=== PATIENT | female | born 1940 | race African-American/Black ===

== ENCOUNTER 2018-08-20 20:04 | Emergency (ER) | payer OTHER ==
--- NOTE | 2018-08-20 20:40 | PDOC ---
History of Present Illness - General Chief Complaint: Pain Stated Complaint: RT FOOT PAIN Time Seen by Provider: 08/20/18 20:28 History Source: Patient Exam Limitations: No Limitations - History of Present Illness Initial Comments: 08/20/18 20:35 78 yr female history of DM, HTN chronic back pain with 5 days pain to right great toe and across her foot no trauma . pt has history of elevated uric acid in the past. no fever no chills no vomiting. Past History - Past Medical History Allergies/Adverse Reactions: Allergies Allergy/AdvReac Type Severity Reaction Status Date / Time No Known Allergies Allergy Verified 11/30/14 20:33 Home Medications: Ambulatory Orders Hydrochlorothiazide [Hctz -] 25 mg PO DAILY 11/30/14 Levothyroxine [Synthroid -] 50 mcg PO DAILY 11/30/14 Metoprolol Succinate [Toprol Xl] 50 mg PO DAILY 11/30/14 Nifedipine ER [Procardia XL -] 60 mg PO DAILY 11/30/14 Duloxetine HCl 60 mg PO DAILY 08/20/18 Indomethacin [Indocin -] 50 mg PO BID #14 capsule 08/20/18 Ranitidine [Zantac -] 300 mg PO DAILY 08/20/18 COPD: No Diabetes: Yes GI Disorders: Yes (GERD REFLUX) HTN: Yes Thyroid Disease: Yes (HYPO) - Immunization History Immunization Up to Date: Yes - Suicide/Smoking/Psychosocial Hx Smoking Status: No Smoking History: Former smoker Have you smoked in the past 12 months: No Number of Cigarettes Smoked Daily: 0 If you are a former smoker, when did you quit?: many years ago Information on smoking cessation initiated: No Hx Alcohol Use: Yes (occasion) Substance Use Type: None Review of Systems - Review of Systems Able to Perform ROS?: Yes Is the patient limited Prydeinig proficient: No Musculoskeletal: Yes: Symptoms Reported *Physical Exam - Vital Signs Last Vital Signs Temp Pulse Resp BP Pulse Ox 99 F 85 18 134/69 95 08/20/18 20:13 08/20/18 20:13 08/20/18 20:13 08/20/18 20:13 08/20/18 20:13 - Physical Exam General Appearance: Yes: Nourished, Appropriately Dressed HEENT: positive: EOMI, JUSTIN Extremity: positive: Erythema (right bunnion, right great toe with erythema, skin intact TTP across top of foot ) Integumentary: positive: Normal Color, Dry, Warm ED Treatment Course - LABORATORY CBC & Chemistry Diagram: 08/20/18 20:36 08/20/18 20:36 - RADIOLOGY Radiology Studies Ordered: Category Date Time Status FOOT-RIGHT [RAD] Stat Radiology 08/20/18 20:34 Ordered Medical Decision Making - Medical Decision Making 08/20/18 20:39 cc: foot pain, toe pain 5 days getting worse *DC/Admit/Observation/Transfer Diagnosis at time of Disposition: Gout attack Qualifiers: Gout site: foot Gout etiology: unspecified cause Laterality: right Qualified Code(s): M10.9 - Gout, unspecified - Discharge Dispostion Disposition: HOME Condition at time of disposition: Fair - Prescriptions Prescriptions: Indomethacin [Indocin -] 50 mg PO BID #14 capsule - Referrals Referrals: Vasiliy Santana [Primary Care Provider] - - Patient Instructions Printed Discharge Instructions: DI for Gout Additional Instructions: indocin every 12hrs for pain as needed warm compresses to the area of pain call your doctor tomorrow to make appointment for follow up avoid any red meat shellfish, chocolate, alcohol as theses foods make gout worse - Post Discharge Activity
[2018-08-20 20:48] LABS: BASO % 1.2 % (0-2.0); EOS % 0.9 % (0-4.5); HEMOGLOBIN 11.1 GM/dL (10.7-15.3); LYMPH % 18.3 % (8-40); MCH 30.5 pg (25.7-33.7); MCHC 34.7 g/dl (32.0-36.0); MEAN CELL VOLUME 87.9 fl (80-96); MEAN PLT VOLUME 8.7 fl (7.5-11.1); MONO % 7.6 % (3.8-10.2); PLATELET COUNT 245 K/MM3 (134-434); RBC 3.63 M/mm3 (3.60-5.2); RDW 14.6 % (11.6-15.6); WHITE BLOOD COUNT 8.6 K/mm3 (4.0-10.0)
[2018-08-20 20:52] VITALS: BP 134/69; PULSE 85; TEMP 99; BMI 28.8
[2018-08-20 21:16] LABS: ALBUMIN 3.2 g/dl (3.4-5.0); ALK PHOS 66 U/L (45-117); ANION GAP 8 MMOL/L (8-16); BILIRUBIN,TOTAL 0.3 mg/dL (0.2-1); BLOOD UREA NITROGEN 23 mg/dL (7-18); CALCIUM 8.7 mg/dL (8.5-10.1); CHLORIDE 102 mmol/L (98-107); CO2 29 mmol/L (21-32); CREATININE 1.7 mg/dL (0.55-1.3); GLUCOSE,RANDOM 139 mg/dL (74-106); POTASSIUM 3.7 mmol/L (3.5-5.1); SGOT/AST 10 U/L (15-37); SGPT/ALT 18 U/L (13-61); SODIUM 139 mmol/L (136-145); URIC ACID 8.6 mg/dL (2.6-7.2)
[2018-08-20] MEDS ORDERED: COLCHICINE 0.6 MG TABLET (FP) PO ONE (21:23)
[2018-08-20] MEDS ORDERED: COLCHICINE 0.6 MG TABLET (FP) ONE (21:27)
[2018-08-20] MEDS ORDERED: INDOMETHACIN 50 MG CAPSULE PO ONE (21:32)
== END 2018-08-20 22:05 | disposition home or self-care (01) ==
LOC: JER 20:04 → JERFT 20:04
DX: M10.9 Gout, unspecified (principal); I10 Essential (primary) hypertension; E11.9 Type 2 diabetes mellitus without complications; E03.9 Hypothyroidism, unspecified
CPT/HCPCS: 36415; 73630-TC-RT-FY; 80053; 84550; 85025; 99281-25

== ENCOUNTER 2021-03-19 22:57 | Observation (INO) | payer OTHER ==
[2021-03-19 23:22] VITALS: BMI 28.2
[2021-03-19] MEDS ORDERED: SODIUM CHLORIDE 1,000 ML IV STA (23:56)
[2021-03-20 00:56] LABS: BASO % 0.8 % (0-2.0); EOS % 2.5 % (0-4.5); HEMOGLOBIN 10.4 GM/dL (10.7-15.3); MCH 30.3 pg (25.7-33.7); MCHC 34.5 g/dl (32.0-36.0); MEAN CELL VOLUME 87.9 fl (80-96); MEAN PLT VOLUME 8.4 fl (7.5-11.1); MONO % 5.4 % (3.8-10.2); NEUT % 72.3 % (42.8-82.8); PLATELET COUNT 267 10^3/uL (134-434); RBC 3.42 M/mm3 (3.60-5.2); RDW 16.6 % (11.6-15.6); WHITE BLOOD COUNT 6.6 K/mm3 (4.0-10.0)
[2021-03-20 01:20] LABS: CHLORIDE 107 mmol/L (98-107); SODIUM 142 mmol/L (136-145)
[2021-03-20 01:22] LABS: CALCIUM 8.9 mg/dL (8.5-10.1)
[2021-03-20 01:23] LABS: ALBUMIN 3.4 g/dl (3.4-5.0); ANION GAP 9 MMOL/L (8-16); BLOOD UREA NITROGEN 23.6 mg/dL (7-18); CO2 26 mmol/L (21-32); GLUCOSE,RANDOM 170 mg/dL (74-106); MAGNESIUM 1.9 mg/dL (1.8-2.4)
[2021-03-20 01:27] LABS: BILIRUBIN,TOTAL 0.3 mg/dL (0.2-1); CREATININE 1.1 mg/dL (0.55-1.3); SGOT/AST 21 U/L (15-37)
[2021-03-20 01:29] LABS: ALK PHOS 56 U/L (45-117)
[2021-03-20 01:58] LABS: SGPT/ALT 33 U/L (13-61); TOT PROT 8.2 g/dl (6.4-8.2)
[2021-03-20 06:22] VITALS: TEMP 98.2
[2021-03-20 07:33] LABS: HEMATOCRIT 27.6 % (32.4-45.2); HEMOGLOBIN 9.1 GM/dL (10.7-15.3); MCHC 33.1 g/dl (32.0-36.0); MEAN CELL VOLUME 87.8 fl (80-96); MEAN PLT VOLUME 8.3 fl (7.5-11.1); PLATELET COUNT 248 10^3/uL (134-434); RBC 3.15 M/mm3 (3.60-5.2); RDW 16.7 % (11.6-15.6); WHITE BLOOD COUNT 5.8 K/mm3 (4.0-10.0)
[2021-03-20 08:01] LABS: ALBUMIN 3.4 g/dl (3.4-5.0); BLOOD UREA NITROGEN 22.2 mg/dL (7-18); MAGNESIUM 2.1 mg/dL (1.8-2.4)
[2021-03-20] MEDS: INSULIN SLIDING SCALE (NOVOLOG) 1 VIAL SQ SCH ×2 (08:01→11:55)
[2021-03-20 08:02] LABS: CALCIUM 9.3 mg/dL (8.5-10.1)
[2021-03-20 08:04] LABS: CREATININE 0.8 mg/dL (0.55-1.3); PHOSPHOROUS 4.3 mg/dL (2.5-4.9)
[2021-03-20 08:05] LABS: TOT PROT 7.8 g/dl (6.4-8.2)
[2021-03-20 08:06] LABS: BILIRUBIN,TOTAL 0.2 mg/dL (0.2-1)
[2021-03-20 09:07] LABS: EPI CELLS 3 /uL (0-25.1); HYALINE CASTS 0 /uL (0-3.1); PH,URINE 6.5 (5.0-8.0); URINE APPEARANCE CLEAR; URINE BACTERIA 32 /uL (0-1359); URINE BILIRUBIN NEGATIVE (NEGATIVE); URINE COLOR YELLOW; URINE GLUCOSE (UA) NEGATIVE (NEGATIVE); URINE KETONE NEGATIVE (NEGATIVE); URINE LEUK ESTERASE NEGATIVE (NEGATIVE); URINE NITRITE NEGATIVE (NEGATIVE); URINE PROTEIN NEGATIVE (NEGATIVE); URINE RBC 29 /uL (0-23.9); URINE UROBILINOGEN 0.2 mg/dL (0.2-1.0); URINE WBC 5 /uL (0-25.8)
[2021-03-20] MEDS ORDERED: ENOXAPARIN NA (PORCINE) 40 MG/0.4 ML DISP.SYRIN SQ SCH (10:00)
[2021-03-20] MEDS ORDERED: PANTOPRAZOLE SODIUM PO SCH (12:00)
[2021-03-20] MEDS ORDERED: LEVOTHYROXINE NA 50 MCG TABLET (FP) PO SCH ×2 (12:00→12:48)
[2021-03-20] MEDS ORDERED: METFORMIN PO SCH (12:00)
[2021-03-20] MEDS ORDERED: FOLIC ACID PO SCH (12:00)
[2021-03-20] MEDS ORDERED: NIFEdipine E.R 60 MG TABLET PO SCH (12:00)
[2021-03-20] MEDS ORDERED: HYDROCHLOROTHIAZIDE 25 MG TABLET (FP) PO SCH (12:00)
[2021-03-20] MEDS ORDERED: PANTOPRAZOLE 40 MG TABLET ONE (12:19)
[2021-03-20] MEDS ORDERED: LEVOTHYROXINE NA 25 MCG TABLET (FP) ONE (12:20)
[2021-03-20] MEDS ORDERED: metFORMIN HCL 500 MG TABLET (FP) ONE (12:20)
[2021-03-20] MEDS ORDERED: NIFEdipine E.R. 30 MG TABLET ONE ×2 (12:20→12:23)
[2021-03-20] MEDS ORDERED: FOLIC ACID 1 MG TABLET (FP) ONE (12:21)
[2021-03-20] MEDS ORDERED: PANTOPRAZOLE 40 MG TABLET PO SCH (12:49)
[2021-03-20] MEDS ORDERED: FOLIC ACID 1 MG TABLET (FP) PO SCH (12:50)
[2021-03-20 13:20] VITALS: BP 147/78; PULSE 76
[2021-03-20] MEDS ORDERED: ROSUVASTATIN CA 5 MG TABLET (FP) PO SCH (22:00)
== END 2021-03-20 13:51 | disposition home or self-care (01) ==
LOC: JER 22:57 → JERBED 03-20 02:21 → UNDOADMOB 03-20 02:21 → INTOOBSV 03-20 03:17 → OBSVTOIN 03-20 03:17 → JERBED 03-20 09:47
PROVIDERS: ADMIT Hospitalist; ATTEND Student in an Organized Health Care Education/Training Program
PROC: 3E0337Z Introduction of Electrolytic and Water Balance Substance into Peripheral Vein, Percutaneous Approach (ICD-10-PCS; principal; 2021-03-20)
PROC: 3E013VG Introduction of Insulin into Subcutaneous Tissue, Percutaneous Approach (ICD-10-PCS; 2021-03-20)
PROC: 3E013GC Introduction of Other Therapeutic Substance into Subcutaneous Tissue, Percutaneous Approach (ICD-10-PCS; 2021-03-20)
DX: R55 Syncope and collapse (principal); I10 Essential (primary) hypertension; E78.5 Hyperlipidemia, unspecified; E11.9 Type 2 diabetes mellitus without complications; E03.9 Hypothyroidism, unspecified; K21.9 Gastro-esophageal reflux disease without esophagitis
CPT/HCPCS: 36415; 71045-TC-FY; 80053; 81003; 82550; 82553; 82962; 83036; 83735; 84100; 84484; 85025; 85027; 93005; 93010; 96360; 96372; 97116-GP; 97161-GP; 99285-25; C9803; G0378; U0003; U0005

== ENCOUNTER 2024-12-11 10:12 | Day surgery (SDC) | payer OTHER ==
[2024-12-04 14:20] VITALS: BMI 25.8
[2024-12-11 10:34] VITALS: RESP 16
[2024-12-11 11:14] VITALS: TEMP 97.3
[2024-12-11 11:48] VITALS: BP 144/74; PULSE 52
== END 2024-12-11 11:40 | disposition home or self-care (01) ==
LOC: FASU-ENDO 10:12
PROVIDERS: ATTEND Internal Medicine Gastroenterology
PROC: 0DB68ZX Excision of Stomach, Via Natural or Artificial Opening Endoscopic, Diagnostic (ICD-10-PCS; 2024-12-11)
PROC: 0DB18ZX Excision of Upper Esophagus, Via Natural or Artificial Opening Endoscopic, Diagnostic (ICD-10-PCS; 2024-12-11)
PROC: 0DB38ZX Excision of Lower Esophagus, Via Natural or Artificial Opening Endoscopic, Diagnostic (ICD-10-PCS; principal; 2024-12-11 10:42)
DX: Z13.810 Encounter for screening for upper gastrointestinal disorder (principal); K44.9 Diaphragmatic hernia without obstruction or gangrene; K29.50 Unspecified chronic gastritis without bleeding
CPT/HCPCS: 82962; 88305-TC; 88342-TC